=== PATIENT | female | born 1985 | race African-American/Black ===

== ENCOUNTER 2017-04-29 12:28 | Emergency (ER) | payer OTHER ==
[2017-04-29 12:55] VITALS: BP 123/77; PULSE 74; TEMP 98.2; BMI 36.6
--- NOTE | 2017-04-29 15:18 | PDOC ---
History of Present Illness - General Chief Complaint: Injury Stated Complaint: LIP INJURY Time Seen by Provider: 04/29/17 15:03 History Source: Patient Exam Limitations: No Limitations - History of Present Illness Initial Comments: 04/29/17 15:18 patient states last week developed a "pimple" on her lower lip. Squeezed it with no drainage, states slipped became more swollen and went was seen at [facility]. More manipulation and cleaning was performed without resolution of lesion. States past few days lesion has grown to become more painful and firm although swelling to lip has resolved. Denies fever, denies drainage other than serous drainage, no dental injury no other symptoms. Occurred: reports: just prior to arrival, this afternoon Severity: reports: mild, moderate Pain Location: reports: mouth Associated Symptoms (Fall): denies symptoms Past History - Travel Traveled outside of the country in the last 30 days: No Close contact w/someone who was outside of country & ill: No - Past Medical History Allergies/Adverse Reactions: Allergies Allergy/AdvReac Type Severity Reaction Status Date / Time No Known Allergies Allergy Verified 04/29/17 12:54 Home Medications: Ambulatory Orders No Home Medications 0 dose .ROUTE UTDICT 05/08/13 Clindamycin [Cleocin -] 300 mg PO TID #21 capsule 04/29/17 Asthma: Yes COPD: No HTN: Yes - Reproductive History (#): 7 Para: 4 Cervical CA: No Dysfunctional Uterine Bleeding: No Ectopic : No Endometrial CA: No Polycystic Ovaries: No Therapeutic (s) & number: Yes Tubal Ligation: No Spontaneous : 1 - Suicide/Smoking/Psychosocial Hx Smoking History: Current every day smoker Number of Cigarettes Smoked Daily: 10 Information on smoking cessation initiated: No 'Breaking Loose' booklet given: 05/08/13 Hx Alcohol Use: No Drug/Substance Use Hx: No Substance Use Type: Alcohol Review of Systems - Review of Systems Able to Perform ROS?: Yes Is the patient limited German proficient: Yes Constitutional: Yes: See HPI. No: Symptoms Reported HEENTM: Yes: See HPI. No: Symptoms Reported Respiratory: Yes: See HPI. No: Symptoms reported Integumentary: Yes: Symptoms Reported, See HPI, Lesions All Other Systems: Reviewed and Negative *Physical Exam - Vital Signs Last Vital Signs Temp Pulse Resp BP Pulse Ox 98.2 F 74 16 123/77 100 02/20/18 12:52 04/29/17 12:52 04/29/17 12:52 04/29/17 12:52 04/29/17 12:52 - Physical Exam General Appearance: Yes: Appropriately Dressed, Apparent Distress, Mild Distress HEENT: positive: AILYN, TMs Normal, Pharynx Normal, Other (patient with 3 mm bulbous mass noted to the) Neurologic: positive: marketing administrator II-XII NML intact, Fully Oriented, Alert, Normal Mood/ Affect, Normal Response, Motor Strength /5 Progress Note - Progress Note Progress Note: Pyogenic granuloma, case was discussed with Dr. Jere Escamilla, plastics who recommended referral to adoption manager for excision and cauterization of granuloma and he would any revision as needed later for scar tissue *DC/Admit/Observation/Transfer Diagnosis at time of Disposition: Pyogenic granuloma - Discharge Dispostion Disposition: HOME Condition at time of disposition: Stable Admit: No - Prescriptions Prescriptions: Clindamycin [Cleocin -] 300 mg PO TID #21 capsule - Referrals Referrals: Anna Olvera MD [Staff Physician] - - Patient Instructions Additional Instructions: Rest, drink lots of fluids: Teas, water, soups Saltwater gargles/ keep mouth clean and rinse after each meal Avoid hard chewing foods, stick to ice cream, Jell-O, yogurt etc. Tylenol or Motrin for fever and pain Complete all medication as prescribed- and myosin Seek adoption manager appointment appointment as soon as possible for evaluation of injury/pain Followup with private physician in one to 2 days as needed Return to emergency department for worsened symptoms, fevers, swelling to face or worsened pain - Post Discharge Activity Forms/Work/School Notes: Back to Work
== END 2017-04-29 15:47 | disposition home or self-care (01) ==
LOC: JERFT 12:28
DX: L98.0 Pyogenic granuloma (principal)
CPT/HCPCS: 99281-25